=== PATIENT | male | born 1960 | race Caucasian/White ===

== ENCOUNTER → 2024-05-12 | Outpatient (CLI) | payer MEDICARE ==
--- NOTE | 2024-05-12 20:24 | CT ---
EXAMINATION TYPE: CT chest wo con CT DLP: 503.6 mGycm, Automated exposure control for dose reduction was used. 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 Sagittal and coronal reformats were created for review. Contrast used: mL of (None if empty) Oral contrast used: (None if empty) FINDINGS: LUNGS/ PLEURA: Centrilobular emphysema changes throughout the lungs. Slightly worse on the right. Fib rotic changes in lung bases with increased interstitial markings bilaterally. No honeycombing visuali zed. Few scattered pulmonary nodules, examples include 5 mm series 3 image 36 in the right upper lung, rig ht lower lung 6 mm pulmonary nodule. Series 3 image 53. AIRWAY: Patent and unremarkable. HEART: Size within normal limits. MEDIASTINUM: No gross evidence of adenopathy. VASCULATURE: No aortic aneurysm. MUSCULOSKELETAL: No acute osseous abnormalities SOFT TISSUES/LYMPH NODES: Unremarkable. LOWER NECK: No significant findings. UPPER ABDOMEN: Nonobstructing renal calculi versus atherosclerotic calcifications on the right. IMPRESSION: 1. Right lower lobe 6 mm pulmonary nodule. Short-term follow-up in 3-6 months recommended to ensure stability. 5 mm right upper lobe dominant nodule. Consider correlation priors at outside institution to ensure stability. 2. Moderate to severe interstitial lung disease in the lung bases with emphysematous changes in the lung apices right greater than left. No suspicious pulmonary nodules. Yearly low-dose lung cancer scr eening recommended for this patient. [facility], , 05/12/2024 8:22 PM
== END | disposition home or self-care (01) ==
LOC: RADCTMAIN 16:11
PROVIDERS: ATTEND Internal Medicine Pulmonary Disease
DX: R91.1 Solitary pulmonary nodule (principal); J84.9 Interstitial pulmonary disease, unspecified; J84.112 Idiopathic pulmonary fibrosis; J44.9 Chronic obstructive pulmonary disease, unspecified; E66.01 Morbid (severe) obesity due to excess calories; J45.50 Severe persistent asthma, uncomplicated; Z72.0 Tobacco use
CPT/HCPCS: 71250